=== PATIENT | female | born 1985 | race Caucasian/White ===

== ENCOUNTER 2016-11-24 17:25 | Emergency (ER) | payer MEDICAID, OTHER ==
[2016-11-24] MEDS ORDERED: NS 1,000 ML IV ONE (17:33)
[2016-11-24] MEDS ORDERED: KETOROLAC 15 MG/1 ML SDV ONE (17:34)
--- NOTE | 2016-11-24 17:40 | EDPHY ---
H & P Time Seen by Provider: 11/24/16 17:28 HPI/ROS: Chief complaint: Urinary tract infection History of present illness: This is a 30-year-old female who presents to the emergency department concerned she has urinary tract infection. Patient reports over the last 2 days she developed symptoms of urinary tract infection including minor dysuria and urinary urgency. She has had urinary tract infections in the past and this feels similar. She is concerned because pain is now progressing up into her flank region, primarily on the left. She denies associated signs or symptoms including no fevers, no nausea or vomiting, no abdominal pain, no changes in bowel habits. Review of systems: A 10 point review of systems was obtained and other than described above was negative (Jose Rosario) - Social History Additional Social History: Currently incarcerated, police at bedside (Jose Rosario) - Physical Exam Exam: General Appearance: Alert, no distress. Eyes: Pupils equal and round no pallor or injection. ENT, Mouth: Mucous membranes moist. Respiratory: There are no retractions, lungs are clear to auscultation. Cardiovascular: Regular rate and rhythm. Gastrointestinal: Abdomen is soft and nontender, no masses, bowel sounds normal. Genitourinary: Mild left-sided CVA tenderness Neurological: Alert and oriented. Strength and sensation intact and symmetrical. Skin: Warm and dry, no rashes. Musculoskeletal: Neck is supple nontender. Extremities are symmetrical, full range of motion. Psychiatric: Patient is oriented X 3, there is no agitation. (Jose Rosario) Constitutional: Initial Vital Signs Temperature (C) 36.6 C 11/24/16 18:06 Heart Rate 70 11/24/16 18:06 Respiratory Rate 12 11/24/16 18:06 Blood Pressure 110/60 11/24/16 18:06 O2 Sat (%) 98 11/24/16 18:06 O2 Delivery Mode Room Air Allergies/Adverse Reactions: haloperidol [From Haldol] Allergy (Verified 11/24/16 17:33) latex Allergy (Verified 11/24/16 17:33) Home Medications: Medication Instructions Recorded NK [No Known Home Meds] 11/24/16 Medical Decision Making - Diagnostics Imaging: Discussed imaging studies w/ clinical team lead Radiologist ED Course/Re-evaluation: Patient discussed with my secondary supervising physician Dr. Gricelda Joseph. Patient presents to the emergency department complaining initially of urinary symptoms and now left flank pain. On presentation she is nontoxic. She is afebrile and vital signs are stable. Blood studies are unremarkable. Urinalysis does show some blood although this is likely because she requested to have a catheter urine obtained. It is otherwise unremarkable. A CT scan was pursued to rule out kidney stone which was also negative for acute findings. At this time I do not appreciate evidence of need for further emergency department intervention or inpatient management. My suspicion for serious pathology is low. Patient will be discharged back to shelter with police. She is asked to inform police if she feels symptoms are worsening so she can be re-evaluated. (Jose Rosario) The patient was evaluated and managed by the physician fitness assistant. I have reviewed this chart and I agree with the findings and plan of care as documented , as indicated by my signature. I am the secondary supervising physician. ( Gricelda Joseph) Differential Diagnosis: Included but not limited to cystitis, pyelonephritis, nephrolithiasis, diverticulitis, colitis, peptic ulcer disease (Jose Rosario) - Data Points Laboratory Results: Laboratory Results 11/24/16 17:36 11/24/16 17:36 Medications Given: Discontinued Medications Acetaminophen (Tylenol) 1,000 mg PO EDNOW ONE Stop: 11/24/16 20:08 Last Admin: 11/24/16 20:14 Dose: 1,000 mg Sodium Chloride (Ns) 1,000 mls @ 0 mls/hr IV EDNOW ONE; Wide Open PRN Reason: Protocol Stop: 11/24/16 17:34 Last Admin: 11/24/16 17:37 Dose: 1,000 mls Ketorolac Tromethamine (Toradol) 30 mg IVP EDNOW ONE Stop: 11/24/16 18:26 Last Admin: 11/24/16 18:46 Dose: 30 mg Ondansetron HCl (Zofran) 4 mg IVP EDNOW ONE Stop: 11/24/16 18:26 Last Admin: 11/24/16 18:45 Dose: 4 mg Departure - Departure Disposition: Law Enforcement/Court/Custodial Clinical Impression: Left flank pain Condition: Good Instructions: Flank Pain (ED) Additional Instructions: Follow-up with a primary care doctor for recheck If symptoms worsen or new symptoms develop return to the emergency room Patient is medically cleared to return to shelter Referrals: NONE *PRIMARY CARE P,. [Primary Care Provider] - As per Instructions [facility],. [Clinic] - As per Instructions
[2016-11-24 17:54] LABS: % IMMATURE GRANULYOCYTES 0.9 % (0.0-1.1); ABSOLUTE IMMATURE GRANULOCYTES 0.07 10^3/uL (0.00-0.10); ADD DIFF? NO; ADD MORPH? NO; ADD SCAN? NO; ATYPICAL LYMPHOCYTE FLAG 10 (0-99); FRAGMENT RBC FLAG 0 (0-99); HEMATOCRIT 41.7 % (38.0-47.0); HEMOGLOBIN 14.2 g/dL (12.6-16.3); LEFT SHIFT FLG 0 (0-99); LIPEMIA HEMOLYSIS FLAG 90 (0-99); MEAN CELL HEMOGLOBIN 32.4 pg (27.9-34.1); MEAN CELL HEMOGLOBIN CONCENTR. 34.1 g/dL (32.4-36.7); MEAN CELL VOLUME 95.2 fL (81.5-99.8); MEAN PLATELET VOLUME 9.3 fL (8.7-11.7); PLATELET CLUMPS FLAG 0 (0-99); PLATELET COUNT 251 10^3/uL (150-400); RED BLOOD CELL COUNT 4.38 10^6/uL (4.18-5.33); RED CELL DISTRIBUTION WIDTH 13.6 % (11.5-15.2)
[2016-11-24 18:07] VITALS: O2SAT 98
[2016-11-24 18:09] LABS: ANION GAP 10 mEq/L (8-16); CALCIUM 9.2 mg/dL (8.5-10.4); CARBON DIOXIDE 27 mEq/l (22-31); CHLORIDE 105 mEq/L (97-110); GLOMERULAR FILTRATION RATE > 60; GLUCOSE 88 mg/dL (70-100); POTASSIUM 4.2 mEq/L (3.5-5.2); SODIUM 142 mEq/L (134-144)
[2016-11-24] MEDS ORDERED: ONDANSETRON 4 MG/2 ML VIAL IVP ONE (18:25)
[2016-11-24] MEDS ORDERED: KETOROLAC 30 MG/1 ML SDV IVP ONE (18:25)
[2016-11-24 20:02] LABS: COLOR YELLOW; LEUKOCYTE ESTERASE,URINE NEGATIVE (NEGATIVE); NITRITE,URINE NEGATIVE (NEGATIVE)
[2016-11-24 20:04] LABS: MUCUS TRACE /lpf (NONE-1+); RBC,URINE 15-25 /hpf (0-3)
[2016-11-24] MEDS ORDERED: ACETAMINOPHEN 500 MG TAB PO ONE (20:07)
[2016-11-24 20:59] VITALS: BP 116/80; PULSE 72; RESP 16; TEMP 98.2
== END 2016-11-24 21:07 ==
DX: R10.9 Unspecified abdominal pain (principal); E86.9 Volume depletion, unspecified; Z91.040 Latex allergy status
CPT/HCPCS: 96374; J1885; J2405